=== PATIENT | male | born 1985 | race Hispanic/Latino ===

== ENCOUNTER 2020-06-29 10:46 | Emergency (ER) | payer SELFPAY ==
[~2020-06-29] VITALS: Ht 180.3 cm; Wt 124.7 kg
[2020-06-29] MEDS ORDERED: LIDOCAINE 1% W/EPINEPHRINE 20 ML VIAL INJ ONE (11:00)
[2020-06-29] MEDS ORDERED: TETANUS/DIPHTHERIA TOX ADULT 0.5 ML SYR IM ONE (11:00)
--- NOTE | 2020-06-29 11:00 | Emergency Department Note ---
History of Present Illnes History of Present Illness Chief Complaint: General Medicine Complaints History of Present Illness This is a 35 year old male Chief Complaint Comment PATIENT IN FROM HOME WITH COMPLAINTS OF LAC TO OUTSIDE OF LEFT EYEBROW; STATES THAT HE WAS BUILDING A SWINGSET AND A BEAM SLIPPED AND HIT HIM IN THE HEAD. PATIENT DENIES NAUSEA, VOMITING, AND LOC. RATES PAIN 4/10. Historian: Patient, Family Member Arrival Mode: Car Surgical Aides Teacher Required: No Onset (how long ago): hour(s) (1) Location: L brow Quality: Sharp Radiation: Reports non-radiation Severity: mild Onset quality: sudden Duration (how long): hour(s) (1) Timing of current episode: constant Progression: unchanged Chronicity: new Context: Denies recent illness, Denies recent surgery Relieving factors: none Exacerbating factors: none Associated symptoms: Reports denies other symptoms Treatments prior to arrival: none Past Medical/Family History Physician Review I have reviewed the patient's past medical and family history. Any updates have been documented here. Past Medical History Recent Fever: No Clinical Suspicion of Infectio: No New/Unexplained Change in Ment: No Past Medical History: None Past Surgical History: None Social History Physically hurt or threatened: No Other Last Tetanus: > 10 YEARS Review of Systems Review of Systems Constitutional: Reports no symptoms EENTM: Reports as per HPI (L brow laceration) Cardiovascular: Reports no symptoms Respiratory: Reports no symptoms Gastrointestinal: Reports no symptoms Genitourinary: Reports no symptoms Musculoskeletal: Reports no symptoms Integumentary: Reports no symptoms Neurological: Reports no symptoms Psychological: Reports no symptoms Endocrine: Reports no symptoms Hematological/Lymphatic: Reports no symptoms Physical Exam Related Data Allergies: Coded Allergies: No Known Allergies (Unverified , 06/29/20) Triage Vital Signs Vital Signs Date Time Temp Pulse Resp B/P (MAP) Pulse Ox O2 Delivery O2 Flow Rate FiO2 06/29/20 10:50 98.1 84 18 156/97 100 Room Air Vital signs reviewed: Yes Physical Exam CONSTITUTIONAL Constitutional: Present well-developed, Present well-nourished HENT HENT: Present normocephalic, Present atraumatic, Present oropharynx clear/moist, Present nose normal, Present other (Stellate laceraiton to L brow) HENT L/R: Present left ext ear normal, Present right ext ear normal EYES Eyes: Reports PERRL, Reports conjunctivae normal NECK Neck: Present ROM normal PULMONARY Pulmonary: Present effort normal; Absent respiratory distress CARDIOVASCULAR Cardiovascular: Present capillary refill normal, Present normal rate GASTROINTESTINAL Abdominal: Present soft, Present nontender, Present bowel sounds normal GENITOURINARY Genitourinary: Present exam deferred SKIN Skin: Present warm, Present dry MUSCULOSKELETAL Musculoskeletal: Present ROM normal NEUROLOGICAL Neurological: Present alert, Present oriented x 3, Present no gross motor or sensory deficits PSYCHOLOGICAL Psychological: Present mood/affect normal, Present judgement normal Procedures Laceration Laceration: Laceration 1 Site: face Side: left Size (cm): 2 Description: stellate Depth: simple, single layer Local anesthesia: lidocaine 1%, with epi Amount of anesthesia (mL): 3 Skin layer closed with: other (Prolene) Size (cm): 4-0 Number of sutures: 3 Technique: simple, interrupted Assessment & Plan Medical Decision Making MDM 35-year-old male presents for left-sided brow laceration. No loss of consciousness, no signs of skull fracture. The laceration is stellate in nature and 3 sutures were placed. Some of the wound will have to heal by secondary intention. I instructed him on the expected disease time course and management and that he will follow-up in 5-7 days for suture removal. Patient states cur rent plan is appropriate for discharge. Assessment & Plan Final Impression: (1) Laceration of brow without complication Depart Disposition: HOME, SELF-CARE Last Vital Signs Date Time Temp Pulse Resp B/P (MAP) Pulse Ox O2 Delivery O2 Flow Rate FiO2 06/29/20 10:50 98.1 84 18 156/97 100 Room Air Home Meds No Active Prescriptions or Reported Meds HARINI VILLEGAS MD Jun 29, 2020 11:00
[2020-06-29] MEDS ORDERED: LIDOCAINE HCL 1% LOCAL INJ 20 ML VIAL ONE (11:05)
== END 2020-06-29 12:17 | disposition home or self-care (01) ==
LOC: ER 11:00
DX: S01.112A Laceration without foreign body of left eyelid and periocular area, initial encounter (principal); W20.8XXA Other cause of strike by thrown, projected or falling object, initial encounter; Y92.008 Other place in unspecified non-institutional (private) residence as the place of occurrence of the external cause
CPT/HCPCS: 12011; 90471; 90714; 99282; J2001